=== PATIENT | male | born 1980 | race Caucasian/White ===

== ENCOUNTER → 2018-04-09 | Outpatient (CLI) | payer OTHER ==
[~2018-04-09] MED LIST: ASPIR 8181 MG PO; CARDIZEM CD120 MG PO; FLECAINIDE ACE150 MG PO; FLEXERIL PO; PRADAXA150 MG PO; PRADAXA75 MG PO
== END ==
LOC: M.RAD 13:25
DX: M25.551 Pain in right hip (principal)

== ENCOUNTER → 2018-05-03 | Outpatient (CLI) | payer OTHER | END | disposition home or self-care (01) | LOC: M.RAD 04-22 16:26 | DX: S73.191A Other sprain of right hip, initial encounter (principal); M24.151 Other articular cartilage disorders, right hip; M25.551 Pain in right hip; G89.29 Other chronic pain; I48.91 Unspecified atrial fibrillation; Z79.01 Long term (current) use of anticoagulants; Z86.73 Personal history of transient ischemic attack (TIA), and cerebral infarction without residual deficits; Z91.040 Latex allergy status; Z79.82 Long term (current) use of aspirin; Z79.899 Other long term (current) drug therapy; X58.XXXA Exposure to other specified factors, initial encounter; Y93.89 Activity, other specified; Y92.89 Other specified places as the place of occurrence of the external cause; Y99.8 Other external cause status ==

== ENCOUNTER → 2018-06-17 | Outpatient (CLI) | payer OTHER ==
[2018-06-17 13:42] LABS: ABSOLUTE BASOPHILS 0.1 thou/uL (0.0-0.2); ABSOLUTE EOSINOPHILS 0.1 thou/uL (0.0-0.7); ABSOLUTE LYMPHOCYTES 1.9 thou/uL (0.8-5.3); ABSOLUTE MONOCYTES 0.8 thou/uL (0.0-1.2); ABSOLUTE NEUTROPHILS 7.7 thou/uL (1.6-8.1); BASOPHILS 0.6 %; EOSINOPHILS 0.6 %; HEMATOCRIT 54.3 % (42.0-52.0); HEMOGLOBIN 18.6 gm/dL (14.0-18.0); LYMPHOCYTES 17.6 %; MCH 30.3 pg (26.0-34.0); MCHC 34.3 g/dL (28.0-37.0); MCV 88.3 fL (80.0-100.0); MONOCYTES 7.9 %; MPV 8.1 fl. (7.2-11.1); NUCLEATED RBCS 0 /100WBC; PLATELET COUNT* 365 thou/uL (150-400); POLYS 73.3 %; RBC 6.14 mil/uL (4.50-6.00); RDW-CV 12.2 % (10.5-14.5); WBC 10.5 thou/uL (4.0-11.0)
[2018-06-17 13:58] LABS: ALBUMIN 4.8 g/dL (3.4-5.0); CALCIUM 9.8 mg/dL (8.5-10.1); CREATININE 1.5 mg/dL (0.6-1.3); POTASSIUM 4.1 mmol/L (3.5-5.1); TOTAL BILIRUBIN 1.3 mg/dL (<0.1-1.0); TOTAL PROTEIN 9.8 g/dL (6.4-8.2)
[2018-06-17 14:54] LABS: ESR (SEDRATE) 1 mm/hr (0-15)
== END ==
LOC: M.LAB 13:23
PROVIDERS: Internal Medicine
DX: R63.4 Abnormal weight loss (principal); R42 Dizziness and giddiness; Z79.899 Other long term (current) drug therapy